=== PATIENT | female | born 1975 | race Caucasian/White ===

== ENCOUNTER 2024-06-19 07:00 | Outpatient (NON) | payer OTHER, SELFPAY | END 2024-06-19 07:01 | disposition home or self-care (01) | LOC: ANHLAB 06-20 09:08 | PROVIDERS: Visit Provider Surgery | DX: Z12.11 Encounter for screening for malignant neoplasm of colon (principal); Z12.12 Encounter for screening for malignant neoplasm of rectum | CPT/HCPCS: 88305 ==

== ENCOUNTER 2024-06-19 07:34 | Day surgery (SDC) | payer OTHER, SELFPAY ==
[2024-05-25 08:25] VITALS: BMI 25.9
--- NOTE | 2024-06-19 06:47 | WPDANESEPPF ---
Anes - Initial Pre Proc Eval Procedure: Operation Date: 06/19/24 09:30 Proposed Procedures p Screening Colonoscopy - Reyes Gee DO Date/Time: 06/19/24 06:47 Surgeon: Reyes Gee DO Pre Op Diagnosis: Neoplasm Screening Patient Data Age: 48 Gender: F Height: 1.73 m Weight: 77.3 kg Allergies Allergy/AdvReac Type Severity Reaction Status Date / Time No Known Drug Allergies Allergy Other Verified 06/19/24 08:21 Home Medications Medication Instructions Recorded Confirmed Type L.acid,gasseri,plant,rham-B.animalis-cran 1 cap PO DAILY #1 cap 05/08/24 06/19/24 Rx 5 billion cell-250mg capsule (up4 Probiotics Women's) ascorbate calcium (vitamin C) 500 500 mg PO DAILY #1 tablet 05/08/24 06/19/24 Rx mg tablet cholecalciferol (vitamin D3) 10 10 mcg PO DAILY #1 cap 05/08/24 06/19/24 Rx mcg (400 unit) capsule d-mannose 500 mg capsule 500 mg PO DAILY #1 cap 05/08/24 06/19/24 Rx estradiol-norethindrone acet 0.5 1 tablet PO DAILY 05/08/24 06/19/24 History mg-0.1 mg tablet magnesium 200 mg tablet 200 mg PO DAILY #1 tablet 05/08/24 06/19/24 Rx minoxidil 2.5 mg tablet 2.5 mg PO DAILY 05/08/24 06/19/24 History phenazopyridine 95 mg tablet (Azo 95 mg PO TID PRN pain 6 doses #1 05/08/24 06/19/24 Rx Urinary Pain Relief) tablet semaglutide 0.25 mg or 0.5 mg (2 0.25 mg subcut WEEKLY 05/18/24 06/19/24 History mg/3 mL) subcutaneous pen injector Patient hx anesthesia problems: none Family hx anesthesia problems: none Results Review: All pre-operative results and documents have been reviewed as part of the pre-operative evaluation. [facility] Past Medical History Medical History (Updated 06/19/24 @ 09:40 by Reyes Gee DO) Anxiety delivery delivered Surgical History Surgical History (Updated 05/08/24 @ 12:41 by Isadora Bush PA-C) History of breast augmentation History of delivery 1996, 1997, 2001 S/P laparoscopic splenectomy Family History Family History (Updated 05/08/24 @ 11:58 by Murray Kan MA) Father Hypertension Mother Depression Anxiety Cerebrovascular accident Grandparent Breast cancer Social History Social History (Updated 05/08/24 @ 11:59 by Murray Kan MA) Smoking status: Current every day smoker Tobacco type: e-cigarettes/vaping Alcohol intake: current Drinks per week: 3 Substance use type: does not use Do You Feel Safe in your Home?: Yes Lack of Transportation: No Lack of Food: Never True Current Housing: I Have Housing Concerned About Future Housing: No Difficulty Paying Gas/Electric Bills: No Difficulty Paying for Meds: No Currently Unemployed: No Living arrangements: with family Gender identity (if verbalized by the patient): Female Sexual Orientation (if Verbalized by the Patient): Straight or Heterosexual Spiritual care concerns: No Anes - Eval Final PreProcedure Day of Procedure 06/19/24 06:47 Patient weight: overweight Heart: regular rate and rhythm Lungs: clear to auscultation Airway: Mallampati scale class II Neurological: alert and oriented Last oral intake: >/= 8 hours ASA classification: II Emergent: no Anesthetic plan: proceed Anesthesia type and monitoring: general GIVS and standard monitoring Results Review: All pre-operative results and documents have been reviewed as part of the pre-operative evaluation. Informed Consent: The patient's anesthetic plan and its attendant risks and benefits were discussed with the patient/family/POA. Questions were solicited and answers provided to the satisfaction of the patient/family/POA.
[2024-06-19 08:22] VITALS: BP 141/85; PULSE 92; RESP 15; TEMP 37.1; O2SAT 98
[2024-06-19] MEDS: LACTATED RINGERS 1,000 ML 150 ML IV CONT (08:29)
--- NOTE | 2024-06-19 09:39 | PM.IMHP ---
H&P: HPI History of Present Illness Date/Time: 06/19/24 09:39 Chief Complaint: screening for colorectal cancer Narrative: this is a 48-year-old woman who presents for colonoscopy. She has never had a colonoscopy before. She denies any hematochezia or melena. She denies any family history of colon cancer. Review of Systems Review of Systems: All systems reviewed & are unremarkable except as noted in HPI and below Constitutional: Constitutional: Denies chills, Denies fever(s), Denies headache(s) and Denies weight loss Eyes: Eyes: Denies change in vision ENT: Denies dizziness, Denies headache(s), Denies neck mass and Denies throat swelling Cardiovascular: Cardiovascular: Denies chest pain, Denies lightheadedness and Denies dyspnea Respiratory: Respiratory: Denies cough, Denies dyspnea and Denies wheezing Gastrointestinal: Gastrointestinal: Denies abdominal pain, Denies change in bowel habits, Denies nausea and Denies vomiting Genitourinary: Genitourinary: Denies hematuria and Denies dysuria Musculoskeletal: Musculoskeletal: Reports as per HPI Integumentary/Breasts: Skin/Breast: Reports as per HPI Neurologic: Denies dizziness and Denies headache(s) Allergic/Immunologic: Allergic/Immunologic: Denies throat swelling and Denies wheezing PMF Past Medical History Medical History (Updated 06/19/24 @ 09:40 by Reyes Gee DO) Anxiety delivery delivered Surgical History Surgical History (Updated 05/08/24 @ 12:41 by Isadora Bush PA-C) History of breast augmentation History of delivery 1996, 1997, 2001 S/P laparoscopic splenectomy Family History Family History (Updated 05/08/24 @ 11:58 by Murray Kan MA) Father Hypertension Mother Depression Anxiety Cerebrovascular accident Grandparent Breast cancer Social History Social History (Updated 05/08/24 @ 11:59 by Murray Kan MA) Smoking status: Current every day smoker Tobacco type: e-cigarettes/vaping Alcohol intake: current Drinks per week: 3 Substance use type: does not use Do You Feel Safe in your Home?: Yes Lack of Transportation: No Lack of Food: Never True Current Housing: I Have Housing Concerned About Future Housing: No Difficulty Paying Gas/Electric Bills: No Difficulty Paying for Meds: No Currently Unemployed: No Living arrangements: with family Gender identity (if verbalized by the patient): Female Sexual Orientation (if Verbalized by the Patient): Straight or Heterosexual Spiritual care concerns: No Meds Home Medications and Allergies Home Medications Medication Instructions Recorded Confirmed Type L.acid,gasseri,plant,rham-B.animalis-cran 1 cap PO DAILY #1 cap 05/08/24 06/19/24 Rx 5 billion cell-250mg capsule (up4 Probiotics Women's) ascorbate calcium (vitamin C) 500 500 mg PO DAILY #1 tablet 05/08/24 06/19/24 Rx mg tablet cholecalciferol (vitamin D3) 10 10 mcg PO DAILY #1 cap 05/08/24 06/19/24 Rx mcg (400 unit) capsule d-mannose 500 mg capsule 500 mg PO DAILY #1 cap 05/08/24 06/19/24 Rx estradiol-norethindrone acet 0.5 1 tablet PO DAILY 05/08/24 06/19/24 History mg-0.1 mg tablet magnesium 200 mg tablet 200 mg PO DAILY #1 tablet 05/08/24 06/19/24 Rx minoxidil 2.5 mg tablet 2.5 mg PO DAILY 05/08/24 06/19/24 History phenazopyridine 95 mg tablet (Azo 95 mg PO TID PRN pain 6 doses #1 05/08/24 06/19/24 Rx Urinary Pain Relief) tablet semaglutide 0.25 mg or 0.5 mg (2 0.25 mg subcut WEEKLY 05/18/24 06/19/24 History mg/3 mL) subcutaneous pen injector Allergies Allergy/AdvReac Type Severity Reaction Status Date / Time No Known Drug Allergies Allergy Other Verified 06/19/24 08:21 Vital Signs Vital Signs - 24 hr 06/19/24 08:22 Temperature 37.1 C Pulse Rate 92 Respiratory Rate 15 Blood Pressure 141/85 H Pulse Oximetry 98 Oxygen Delivery Room Air Exam Const: General: no acute distress and alert Orientatio
[2024-06-19 10:10] VITALS: BP 118/77; PULSE 76; RESP 16; O2SAT 100
[2024-06-19 10:20] VITALS: BP 111/73; PULSE 73; RESP 20; O2SAT 100
[2024-06-19 10:30] VITALS: BP 120/80; PULSE 67; RESP 20; O2SAT 100
--- NOTE | 2024-06-19 10:47 | WPDANESPN ---
Anes - Prog Note Post-Op Date/Time: 06/19/24 10:47 Cardiovascular status: normal Respiratory status: normal Airway patency: baseline Mental status: baseline Post-Op hydration status: normal Vital Signs: Last Vital Signs Temp 37.1 C 06/19/24 08:22 Pulse 67 06/19/24 10:30 Resp 20 06/19/24 10:30 BP 120/80 06/19/24 10:30 Pulse Ox 100 06/19/24 10:30 O2 Del Method Room Air 06/19/24 10:30 Pain Score (VAS): 0 I/O: Intake & Output 06/18/24 06/19/24 06/19/24 23:59 07:59 15:59 Intake Total 450 Balance 450 Post-procedural complaints: none Patient Feedback: Patient satisfied with anesthetic care. Other Findings: Patient vital signs back to baseline. Patient denies nausea and vomiting. Patient's pain under control. Patient OK for discharge.
== END 2024-06-19 10:41 | disposition home or self-care (01) ==
PROVIDERS: Visit Provider Surgery
PROC: 0DJD8ZZ Inspection of Lower Intestinal Tract, Via Natural or Artificial Opening Endoscopic (ICD-10-PCS; CPT 45378; principal; 2024-06-19 09:30)
DX: Z12.11 Encounter for screening for malignant neoplasm of colon (principal); D12.0 Benign neoplasm of cecum; K57.30 Diverticulosis of large intestine without perforation or abscess without bleeding; K64.8 Other hemorrhoids
CPT/HCPCS: 45380